=== PATIENT | male | born 1955 | race Two or more races ===

== ENCOUNTER 2017-05-14 12:41 | Inpatient (IN) | payer MEDICAID ==
[~2017-05-14] VITALS: Ht 175.3 cm; Wt 67.9 kg
[~2017-05-14 12:41] MED LIST: BENZ1TAB10 PO; DOCU250C91 PO; FLUP5 PO; LISI-661 PO; MIRT15 PO; OMEP20 PO
[2017-05-14] MEDS ORDERED: HALOPERIDOL 5 MG TABLET PO PRN (16:45)
[2017-05-14] MEDS ORDERED: ZOLPIDEM TARTRATE 10 MG TABLET PO PRN (16:45)
[2017-05-14] MEDS ORDERED: LORazepam 2 MG TABLET PO PRN (16:45)
[2017-05-14 17:03] VITALS: BP 138/84
[2017-05-14] MEDS ORDERED: PNEUMOCOCCAL VACCINE POLYVALENT 0.5 ML VIAL [PPSV23] IM ONE (17:30)
[2017-05-14] MEDS ORDERED: INFLUENZA VIRUS VACCINE QVS 2017-18 (3YR+)/PF 60 MCG/0.5 ML SYRINGE IM ONE (17:30)
[2017-05-14] MEDS ORDERED: DOCUSATE SODIUM 250 MG CAPSULE PO PRN (19:00)
[2017-05-14] MEDS: MIRTAZAPINE 15 MG TABLET PO SCH (20:47)
[2017-05-14] MEDS: BENZTROPINE MESYLATE 1 MG TABLET PO SCH (20:47)
[2017-05-14] MEDS: HALOPERIDOL 5 MG TABLET PO SCH (20:47)
[2017-05-15 00:15] VITALS: BP 121/86
[2017-05-15] MEDS ORDERED: LOPERAMIDE HCL 2 MG CAPSULE PO PRN (07:15)
[2017-05-15] MEDS ORDERED: ACETAMINOPHEN 325 MG TABLET PO PRN (07:15)
[2017-05-15] MEDS ORDERED: IBUPROFEN 600 MG TABLET PO PRN (07:15)
[2017-05-15] MEDS ORDERED: PETROLATUM,WHITE 71 GM JELLY TP PRN (07:15)
[2017-05-15] MEDS ORDERED: MAG HYDROX/AL HYDROX/SIMETH ES 30 ML SUSPENSION UDCUP PO PRN (07:15)
[2017-05-15] MEDS ORDERED: ONDANSETRON HCL 4 MG TABLET PO PRN (07:15)
[2017-05-15] MEDS ORDERED: CloNIDine HCL 0.1 MG TABLET PO PRN (07:15)
[2017-05-15] MEDS ORDERED: BACITRACIN 28.4 GM OINTMENT TP PRN (07:15)
[2017-05-15] MEDS ORDERED: BENZOCAINE/MENTHOL LOZENGE MM PRN (07:15)
[2017-05-15] MEDS ORDERED: MAGNESIUM HYDROXIDE SUSPENSION 30 ML UDCUP PO PRN (07:15)
[2017-05-15] MEDS ORDERED: ALBUTEROL SULFATE HFA 90 MCG/PUFF 8 GM INHALER IH PRN (07:15)
[2017-05-15 08:01] VITALS: BP 110/56
[2017-05-15] MEDS: OMEPRAZOLE 20 MG CAPSULE PO SCH (08:22)
[2017-05-15] MEDS: HALOPERIDOL 5 MG TABLET PO SCH ×2 (08:22→21:03)
[2017-05-15 08:25] LABS: BASOPHILS # (AUTO) 0.02 K/uL (0.00-0.20); BASOPHILS % (AUTO) 0.2 % (0.0-2.0); EOSINOPHILS # (AUTO) 0.13 K/uL (0.00-0.70); EOSINOPHILS % (AUTO) 1.31 % (1.0-6.0); HEMATOCRIT 42.6 % (41-53); HEMOGLOBIN 14.3 g/dL (13.5-17.5); LYMPHOCYTES # (AUTO) 1.5 K/uL (1.0-4.8); LYMPHOCYTES % (AUTO) 15.8 % (22.0-44.0); MEAN CORPUSCULAR HEMOGLOBIN 31.9 pg (26.0-34.0); MEAN CORPUSCULAR HGB CONC 33.6 G/dL (31.0-37.0); MEAN CORPUSCULAR VOLUME 95 fL (80-100); MONOCYTES # (AUTO) 0.6 K/uL (0.1-1.0); MONOCYTES % (AUTO) 6.6 % (2.0-9.0); NEUTROPHILS # (AUTO) 7.3 K/uL (1.8-7.7); NEUTROPHILS % (AUTO) 76.1 % (40.0-70.0); PLATELET COUNT (AUTO) 218 K/uL (150-450); RED CELL DISTRIBUTION WIDTH 12.5 % (11.5-14.5)
[2017-05-15] MEDS: BENZTROPINE MESYLATE 1 MG TABLET PO SCH ×2 (08:31→21:03)
[2017-05-15] MEDS: LISINOPRIL 10 MG TABLET PO SCH (08:31)
[2017-05-15] MEDS: NICOTINE 21 MG/24 HOUR PATCH TD SCH (08:35)
[2017-05-15 09:16] LABS: HEMOGLOBIN A1C 5.4 % (4.5-6.2)
[2017-05-15 09:42] LABS: ALANINE AMINOTRANSFERASE 30 U/L (12-78); ALBUMIN 3.4 g/dL (3.4-5.0); ALKALINE PHOSPHATASE 67 U/L (46-116); ANION GAP 6 mmol/L (8-16); ASPARTATE AMINOTRANSFERASE 20 U/L (15-37); BILIRUBIN,TOTAL 0.2 mg/dL (0.1-1.0); CALCIUM, TOTAL 8.8 mg/dL (8.8-10.5); CARBON DIOXIDE 29 mmol/L (22-29); CHLORIDE 104 mmol/L (98-107); CHOL/HDL RATIO 2.9 (4.2-7.3); CHOLESTEROL 117 mg/dL (131-200); CREATININE 0.85 mg/dL (0.60-1.30); FREE T4 (FREE THYROXINE) 0.87 ng/dL (0.76-1.46); GLOMERULAR FILTR. RATE CALC > 60 mL/min (>60); GLUCOSE,RANDOM 81 mg/dL (70-110); HDL CHOLESTEROL 40 mg/dL (40-60); LDL CHOL (CALC.) 63 mg/dL (0-130); SODIUM SERUM 139 mmol/L (136-145); THYROID STIMULATING HORMONE 0.82 uIU/mL (0.36-3.74); TOTAL PROTEIN, SERUM 6.9 g/dL (6.4-8.2); TRIGLYCERIDES 68 mg/dL (15-150); UREA NITROGEN, BLOOD 12 mg/dL (7-18)
[2017-05-15 16:15] VITALS: BP 112/62
[2017-05-15] MEDS: MIRTAZAPINE 15 MG TABLET PO SCH (21:03)
[2017-05-16 00:10] VITALS: BP 118/70
[2017-05-16 08:30] VITALS: BP 102/77
[2017-05-16] MEDS: BENZTROPINE MESYLATE 1 MG TABLET PO SCH ×2 (08:42→20:02)
[2017-05-16] MEDS: LISINOPRIL 10 MG TABLET PO SCH (08:42)
[2017-05-16] MEDS: OMEPRAZOLE 20 MG CAPSULE PO SCH (08:42)
[2017-05-16] MEDS: HALOPERIDOL 5 MG TABLET PO SCH ×2 (08:43→20:02)
[2017-05-16] MEDS: NICOTINE 21 MG/24 HOUR PATCH TD SCH (08:46)
[2017-05-16] MEDS ORDERED: FLUP5 PO (15:06)
[2017-05-16] MEDS ORDERED: HALO100V4 IM (15:06)
[2017-05-16 16:05] VITALS: BP 108/66
[2017-05-16] MEDS: MIRTAZAPINE 15 MG TABLET PO SCH (20:03)
[2017-05-17 03:43] VITALS: BP 117/63
[2017-05-17 08:01] VITALS: BP 110/67
[2017-05-17] MEDS: BENZTROPINE MESYLATE 1 MG TABLET PO SCH (08:52)
[2017-05-17] MEDS: NICOTINE 21 MG/24 HOUR PATCH TD SCH ×2 (08:52→09:00)
[2017-05-17] MEDS: OMEPRAZOLE 20 MG CAPSULE PO SCH (08:53)
[2017-05-17] MEDS: LISINOPRIL 10 MG TABLET PO SCH (08:53)
[2017-05-17] MEDS: HALOPERIDOL 5 MG TABLET PO SCH ×2 (08:53→20:20)
[2017-05-17] MEDS ORDERED: BENZ2TAB10 PO (13:08)
[2017-05-17] MEDS ORDERED: FLUP10 PO (13:08)
[2017-05-17] MEDS: BENZTROPINE MESYLATE 2 MG TABLET PO SCH ×2 (14:59→20:20)
[2017-05-17 16:00] VITALS: BP 114/60
[2017-05-17] MEDS: MIRTAZAPINE 15 MG TABLET PO SCH (20:20)
[2017-05-17] MEDS ORDERED: BENZTROPINE MESYLATE 2 MG TABLET PO SCH (21:00)
[2017-05-18 00:36] VITALS: BP 102/63
[2017-05-18] MEDS: NICOTINE 21 MG/24 HOUR PATCH TD SCH (09:00)
[2017-05-18 09:17] VITALS: BP 126/73
[2017-05-18] MEDS: BENZTROPINE MESYLATE 2 MG TABLET PO SCH (09:37)
[2017-05-18] MEDS: LISINOPRIL 10 MG TABLET PO SCH (09:38)
[2017-05-18] MEDS: OMEPRAZOLE 20 MG CAPSULE PO SCH (09:38)
[2017-05-18] MEDS: HALOPERIDOL 5 MG TABLET PO SCH (09:38)
[2017-05-18] MEDS ORDERED: HALO5 PO (12:04)
[2017-05-18] MEDS ORDERED: MIRT15 PO (12:04)
[2017-05-18] MEDS ORDERED: LISI-661 PO (12:05)
== END 2017-05-18 13:00 | disposition home or self-care (01) | DRG 750 ==
LOC: B2S 16:45
DX: F20.0 Paranoid schizophrenia (principal); R45.851 Suicidal ideations; I10 Essential (primary) hypertension; K46.9 Unspecified abdominal hernia without obstruction or gangrene; K21.9 Gastro-esophageal reflux disease without esophagitis; I25.10 Atherosclerotic heart disease of native coronary artery without angina pectoris; J44.9 Chronic obstructive pulmonary disease, unspecified; K59.00 Constipation, unspecified; F17.200 Nicotine dependence, unspecified, uncomplicated; F12.90 Cannabis use, unspecified, uncomplicated; Z79.899 Other long term (current) drug therapy
CPT/HCPCS: 83036; 84439; 84443; 90471

== ENCOUNTER 2018-04-13 18:47 | Emergency (ER) | payer MEDICAID, OTHER ==
[~2018-04-13] VITALS: Ht 175.3 cm; Wt 64.0 kg
[~2018-04-13 18:47] MED LIST changes: -BENZ1TAB10 PO; +BENZ2TAB10 PO; -DOCU250C91 PO; -FLUP5 PO; +HALO5TAB2 PO; -OMEP20 PO
[2018-04-13] MEDS ORDERED: FLUP1TAB PO (19:23)
[2018-04-13] MEDS ORDERED: BENZTROPINE MESYLATE 2 MG TABLET PO ONE (19:45)
[2018-04-13 20:08] VITALS: BP 155/84
== END 2018-04-13 20:17 | disposition home or self-care (01) ==
LOC: EMS 18:48
DX: F29 Unspecified psychosis not due to a substance or known physiological condition (principal); F20.9 Schizophrenia, unspecified; F17.210 Nicotine dependence, cigarettes, uncomplicated; Z79.899 Other long term (current) drug therapy